=== PATIENT | female | born 1955 | race Two or more races ===

== ENCOUNTER 2020-07-10 06:15 | Day surgery (SDC) | payer OTHER ==
[~2020-07-10] VITALS: Ht 167.6 cm; Wt 95.3 kg
[~2020-07-10 06:15] MED LIST: ALBUAER3 IN; AMIT25TA12 PO; BACL20TA PO; CALC-312 PO; CRANCAP4 PO; DIPH25CA29 PO; GABA-339 PO; HYDR-4069 PO; LEVO50TA7 PO; MOME200A INH; MULT1CHW PO; NITR-79 PO; POTACAP PO; PYRI1TAB3 PO; SIME1CAP17 PO; ZINC50TA7 PO; [UNRECOGNIZED DRUG - CODE] PO; [UNRECOGNIZED DRUG - CODE] PO
[2020-07-10] MEDS ORDERED: fentaNYL CITRATE 100 MCG/2 ML VL ONE (06:47)
[2020-07-10] MEDS ORDERED: MIDAZOLAM HCL 2MG/2ML 2ml VIAL (1mg/ml) ONE (06:47)
[2020-07-10] MEDS ORDERED: ONDANSETRON HCL 4 MG/2 ML VIAL ONE (06:48)
[2020-07-10] MEDS ORDERED: PROPOFOL 10 MG/ML 20 ML IV ONE ×2 (06:48→08:36)
[2020-07-10] MEDS ORDERED: SODIUM CHLORIDE LOCK 20 ML ONE (06:48)
[2020-07-10] MEDS ORDERED: LIDOCAINE 2% (LOCAL ANESTH.) PF 5ml SDV ONE (06:58)
[2020-07-10] MEDS ORDERED: BUPIVACAINE 0.25% INJ 50ML VIAL ONE (07:07)
[2020-07-10] MEDS ORDERED: LIDOCAINE 1%-Mpf/Epinephrine 1:200,000 ONE (07:07)
[2020-07-10] MEDS ORDERED: VANCOMYCIN HCL 1000 MG VL ONE (07:11)
[2020-07-10] MEDS ORDERED: HYDROmorphone HCL 2 MG/ML VL IV PRN (07:15)
[2020-07-10] MEDS ORDERED: ONDANSETRON HCL 4 MG/2 ML VIAL IV PRN (07:15)
[2020-07-10] MEDS ORDERED: ceFAZolin 1GM/50ML 50 ML IV ONE ×2 (07:19→07:23)
[2020-07-10] MEDS: MORPHINE SULFATE 4 MG/ML SYR/VIAL IV PRN ×2 (09:20→09:50)
[2020-07-10 09:55] VITALS: BP 147/74
== END 2020-07-10 10:15 | disposition home or self-care (01) ==
LOC: SUR 06:15
PROVIDERS: ATTEND Anesthesiology
DX: M54.16 Radiculopathy, lumbar region (principal); M48.062 Spinal stenosis, lumbar region with neurogenic claudication; E66.9 Obesity, unspecified; J44.9 Chronic obstructive pulmonary disease, unspecified; E07.9 Disorder of thyroid, unspecified; G62.9 Polyneuropathy, unspecified; G89.29 Other chronic pain; M79.7 Fibromyalgia; M79.9 Soft tissue disorder, unspecified; Z87.891 Personal history of nicotine dependence; Z20.822 Contact with and (suspected) exposure to COVID-19; Z98.890 Other specified postprocedural states; Z79.899 Other long term (current) drug therapy; Z98.51 Tubal ligation status; Z98.84 Bariatric surgery status; Z68.33 Body mass index [BMI] 33.0-33.9, adult; Z87.440 Personal history of urinary (tract) infections
CPT/HCPCS: 22869; 22870; 72100; C1821; C9803; J0690; J2001; J2250; J2270; J2405; J2704; J3010; J3370; J3490; U0003; 76001